=== PATIENT | female | born 1960 | race Caucasian/White ===

== ENCOUNTER 2021-06-23 08:31 | Outpatient (CLI) | payer BC, SELFPAY ==
--- NOTE | 2021-06-23 08:34 | BI_ITS ---
MAMMOGRAPHY - BILATERAL SCREENING REASON FOR EXAM: Female, 61 years old. Routine annual screening examination. PERTINENT HISTORY: Non-contributory. TECHNIQUE: Digital bilateral breast becky (3D mammographic acquisition) in the CC and MLO projections. 2-D mediolateral oblique (MLO) and craniocaudad (CC) views of both breasts were obtained. CAD: Full Field Digital Mammography with Computer Added Detection was performed. COMPARISON: No comparison mammograms available at this time. If any prior films become available, an addendum to this report can be generated. FINDINGS: Breast Composition: There are scattered areas of fibroglandular density. There are no dominant masses or suspicious calcifications. No other significant abnormalities are identified. BI/SCRN MAMM (CAD)W/BECKY BILAT IMPRESSION: Negative screening mammogram. Yearly followup mammogram recommended. (A) ASSESSMENT CATEGORY: BIRADS Category 1: Negative. A letter regarding these results will be sent to the patient by the facility within 30 days. Approximately 10% of breast cancers are not detected by mammography. A normal mammogram should not delay biopsy of a clinically suspicious abnormality. [id number] Electronically Signed: Sha Han MD at 10:34 EST ,
== END 2021-06-23 23:59 | disposition home or self-care (01) ==
LOC: OPBI 08:33
PROVIDERS: PCP Family Medicine; Referring Provider Obstetrics & Gynecology; Visit Provider Obstetrics & Gynecology
DX: Z12.31 Encounter for screening mammogram for malignant neoplasm of breast (principal)
CPT/HCPCS: 77063; 77067

== ENCOUNTER 2021-11-24 05:32 | Day surgery (SDC) | payer BC, SELFPAY ==
[2021-11-24] VITALS (16 sets, daily range): BP systolic 71–135; BP diastolic 51–73; PULSE 89–97; RESP 16; TEMP 36.4–37.1; O2SAT 90–100; BMI 25.7
--- NOTE | 2021-11-24 06:13 | PCM.HP.STD ---
[facility] - General General Date of Service: 11/24/21 Chief Complaint: Screening for intestinal cancer [facility] Narrative CRISTIAN SESAY, is a 61 F who presents who presents today for a screening colonoscopy. Her previous one was 5 years ago and I assisted her with that. She has a father who had colon cancer. She has no specific complaints. No abdominal pain. No bright red blood per rectum or melena. She otherwise states that she enjoys good health. She is not on any anticoagulant. [facility] Medical History (Updated 11/22/21 @ 08:53 by Ivonne Cervantes) Arthritis Back pain Diabetes Dietary restriction Former smoker Hypertension Insulin dependent diabetes mellitus Post-menopausal Wears dentures Home Medications lisinopril 5 mg tablet 5 mg PO DAILY #30 TABLETS 06/24/13 [Rx Last Taken 11/24/21] atorvastatin 40 mg tablet 40 mg PO DAILY 05/16/21 [History Last Taken Unknown] celecoxib 200 mg capsule (Celebrex) 200 mg PO DAILY 05/16/21 [History Last Taken Unknown] estradiol 0.1 mg/24 hr semiweekly transdermal patch 1 patch transdermal 2XW 05/16/21 [History Last Taken Unknown] insulin glargine 100 unit/mL (3 mL) subcutaneous pen (Lantus Solostar U-100 Insulin) 68 unit subcut QHS 05/16/21 [History Last Taken Unknown] insulin lispro 100 unit/mL subcutaneous pen 12 - 14 unit subcut TID 05/16/21 [History Last Taken Unknown] semaglutide 1 mg/dose (2 mg/1.5 mL) subcutaneous pen injector (Ozempic) 1 mg subcut QWEEK 05/16/21 [History Last Taken Unknown] cholecalciferol (vitamin D3) 50 mcg (2,000 unit) capsule 50 mcg PO BID 10/13/21 [History Last Taken Unknown] biotin 1,000 mcg chewable tablet 1 tab PO DAILY 11/22/21 [History Last Taken Unknown] coenzyme Q10 100 mg capsule 1 cap PO BID 11/22/21 [History Last Taken Unknown] doxycycline monohydrate 100 mg capsule 1 cap PO DAILY 11/22/21 [History Last Taken Unknown] Allergy/AdvReac Type Severity Reaction Status Date / Time butoconazole AdvReac Severe ITCH,RASH Verified 11/24/21 06:06 tioconazole AdvReac Severe ITCH,RASH Verified 11/24/21 06:06 Family History Father Colon cancer Mother Diabetes Melanoma Myocardial infarction Surgical History (Updated 10/13/21 @ 14:12 by Yudith Parekh) Hx of colonoscopy S/P hysterectomy Social History Smoking Status: Former smoker alcohol intake: never substance use type: does not use additional social history: - [employer] Constitutional Constitutional: Reports systems reviewed and no addt'l complaints, except as documented Cardiovascular Cardiovascular: Denies chest pain Respiratory/Chest Respiratory/Chest: Denies shortness of breath at rest Gastrointestinal Gastrointestinal: Denies abdominal pain, change in bowel habits, hematochezia or melena Vital Signs Vital Signs Vital Signs: 11/24/21 06:08 11/24/21 06:08 Temperature 98.7 F Temperature Source Temporal Pulse Rate 94 Respiratory Rate 16 Respiratory Pattern Normal Blood Pressure 135/66 H Blood Pressure Mean 89 Blood Pressure Source Monitor Blood Pressure Position Semi-Fowlers Blood Pressure Location Right Arm Pulse Ox 97 Oxygen Delivery Method Room Air Weight Weight: 154 lb 5.177 oz Body Mass Index (BMI) 25.7 Physical Exam Const alert, oriented x3 and no apparent distress General Appearance: cooperative and comfortable Eyes General Eye: normal appearance of both eyes Neck General: normal visual inspection Chest inspection of chest normal Resp Effort and Inspection: able to speak in complete sentences and symmetric chest movement Auscultation: clear to auscultation bilaterally Cardio regular rate and regular rhythm GI soft to palpation, non-tender and non-distended Extremity no calf tenderness Neuro oriented x3 Psych thought process normal Assessment & Plan Assessment/Plan (1) Encounter for screening for malignant neoplasm of colon: PLAN: 61-year-old female who has a father had colon cancer. Previous colonoscopy 5 years ago. She presents for a screening colonoscopy. She presents via open access today. She has had an opportunity to ask and have questions answered. We will proceed as noted. Rico Victor M.D., F.A.C.S.
[2021-11-24] MEDS: Lactated Ringers 1,000 ML 30 ML IV (06:25)
--- NOTE | 2021-11-24 06:30 | COLBX_PTH ---
PATIENT: CRISTIAN SESAY LOC: EN U#:[id number] AGE/SX: 61/F ROOM: RE11/24/[address]: Dr. Rico Victor MD : 1960 BED: DIS: 11/24/2021 SPEC #: [id number] RECD: 11/24/21 12:49 STATUS: AIDEN PRIETO #: [id number] JOSE F: 11/24/21 06:[address]: Rico Victor DEPT: SURGICAL PATHOLOGY RECD BY: Geraldo Syed ENTERED: 11/24/21 13:20 SP TYPE: COLON BX OTHR DR: Dr. Carroll Krueger MD Tissues: Rectum, NOS Procedures: Surgery Specimen Level IV HEADER OPERATION: Colonoscopy, biopsy ? open access (MOD) PRE-OP DIAGNOSIS: Screening TISSUE SUBMITTED: Rectum biopsy MICROSCOPIC DIAGNOSIS Rectum, biopsy: Fragments of colonic mucosa with hyperplastic change. AM:fanta 11/27/2021 MICROSCOPIC DESCRIPTION Slides are reviewed. GROSS DESCRIPTION Received in fixative is one container labeled with the patient's name and designated rectum biopsy. The specimen consists of two irregular fragments of light alas soft tissue that in aggregate measure 0.6 x 0.3 x 0.1 cm. The specimen is totally submitted in one cassette. / SJ:fanta 11/24/2021 TC:5 CPT: 22584
[2021-11-24] MEDS: Midazolam 5 MG/ML Syringe (06:32)
[2021-11-24 06:46] LABS: Bedside Glucose 168 mg/dL (74-106)
--- NOTE | 2021-11-24 06:56 | OP.COLON_ITS ---
Patient Name: Radha Gonzalez Procedure Date: 11/24/2021 6:11 AM Date of : 1960 Age: 61 Procedure: Colonoscopy Indications: Family history of colon cancer in a first-degree relative Providers: Rico Victor MD Referring MD: Carroll Krueger Medicines: Midazolam 3.5 mg IV, Meperidine 100 mg IV Patient Profile: Last Colonoscopy: 5 years ago. Complications: No immediate complications. Procedure: Pre-Anesthesia Assessment: - Prior to the procedure, a History and Physical was performed, and patient medications and allergies were reviewed. The patient's tolerance of previous anesthesia was also reviewed. The risks and benefits of the procedure and the sedation options and risks were discussed with the patient. All questions were answered, and informed consent was obtained. Prior Anticoagulants: The patient has taken no previous anticoagulant or antiplatelet agents. ASA Grade Assessment: II - A patient with mild systemic disease. After reviewing the risks and benefits, the patient was deemed in satisfactory condition to undergo the procedure. After I obtained informed consent, the scope was passed under direct vision. Throughout the procedure, the patient's blood pressure, pulse, and oxygen saturations were monitored continuously. The colonoscope was introduced through the anus and advanced to the cecum, identified by appendiceal orifice and ileocecal valve. The colonoscopy was performed without difficulty. The patient tolerated the procedure well. The quality of the bowel preparation was good. The ileocecal valve and the appendiceal orifice were photographed. Moderate Sedation: Moderate (conscious) sedation was personally administered by the endoscopist. The following parameters were monitored: oxygen saturation, heart rate, blood pressure, and response to care. Total physician intraservice time was 15 minutes. Scope In: 6:34:27 AM Scope Withdrawal Time 0 hours 10 minutes 1 second Scope Out: 6:50:08 AM Total Procedure Duration Time 0 hours 15 minutes 41 seconds Findings: The perianal and digital rectal examinations were normal. Four sessile polyps were found in the rectum. The polyps were diminutive in size. These polyps were removed with a cold biopsy forceps. Resection and retrieval were complete. Multiple diverticula were found in the sigmoid colon and descending colon. Impression: - Four diminutive polyps in the rectum, removed with a cold biopsy forceps. Resected and retrieved. - Diverticulosis in the sigmoid colon and in the descending colon. Recommendation: - Discharge patient to home. - Resume previous diet. - Continue present medications. - Telephone my office for pathology results in 1 week. - Repeat colonoscopy in 5 years for surveillance Rectal findings very benign, will notify pt of path. Procedure Code(s): --- Professional --- 23317, Colonoscopy, flexible; with biopsy, single or multiple 10171, 59, Moderate sedation services provided by the same physician or other qualified health daycare worker performing the diagnostic or therapeutic service that the sedation supports, requiring the presence of an independent trained observer to assist in the monitoring of the patient's level of consciousness and physiological status; initial 15 minutes of intraservice time, patient age 5 years or older Diagnosis Code(s): --- Professional --- K62.1, Rectal polyp Z80.0, Family history of malignant neoplasm of digestive organs K57.30, Diverticulosis of large intestine without perforation or abscess without bleeding CPT copyright 2017 [employer]. All rights reserved. The codes documented in this report are preliminary and upon conditioner tumbler operator review may be revised to meet current compliance requirements. Rico Victor MD 11/24/2021 6:55:35 AM This report has been signed electronically. Number of Addenda: 0 Note Initiated On: 11/24/2021 6:11 AM
--- NOTE | 2021-11-24 06:57 | OP.CCLET_ITS ---
11/24/2021 Carroll Krueger [address] [place] [address] Re : Colonoscopy procedure for Radha Gonzalez Dear Dr. Krueger This procedure was performed on Wednesday, November 24, 2021. My impressions and recommendations are as follows: Impressions : - Four diminutive polyps in the rectum, removed with a cold biopsy forceps. Resected and retrieved. - Diverticulosis in the sigmoid colon and in the descending colon. Recommendations : - Discharge patient to home. - Resume previous diet. - Continue present medications. - Telephone my office for pathology results in 1 week. - Repeat colonoscopy in 5 years for surveillance Rectal findings very benign, will notify pt of path. My findings are described in the full procedure note, which is enclosed. If I can be of further assistance, please feel free to contact me at Doctor phone number(s): Work: . Sincerely, Rico Victor MD 11/24/2021 6:55:35 AM This report has been signed electronically.
--- NOTE | 2021-11-24 07:28 | SUR.PHASEI ---
PT OUT OF TRENDELENBERG AND BP STABLE PT AWAKENS EASILY TO NAME
== END 2021-11-24 08:32 | disposition home or self-care (01) ==
LOC: EN 05:32 → AC 05:33
PROVIDERS: PCP Family Medicine; Referring Provider Family Medicine; Visit Provider Surgery
PROC: 0DJD8ZZ Inspection of Lower Intestinal Tract, Via Natural or Artificial Opening Endoscopic (ICD-10-PCS; CPT 45378; principal; 2021-11-24 06:25)
DX: Z12.11 Encounter for screening for malignant neoplasm of colon (principal); K62.1 Rectal polyp; K57.30 Diverticulosis of large intestine without perforation or abscess without bleeding; E11.9 Type 2 diabetes mellitus without complications; I10 Essential (primary) hypertension; Z79.4 Long term (current) use of insulin; Z79.899 Other long term (current) drug therapy; Z87.891 Personal history of nicotine dependence; Z78.0 Asymptomatic menopausal state; Z80.0 Family history of malignant neoplasm of digestive organs
CPT/HCPCS: 45380; 82962; 88305; 99152; 99153; J7120